=== PATIENT | male | born 1995 | race African-American/Black ===

== ENCOUNTER 2018-11-17 17:20 | Emergency (ER) | payer BC ==
--- NOTE | 2018-11-17 17:27 | EDPHY ---
H & P Time Seen by Provider: 11/17/18 17:24 HPI/ROS: CHIEF COMPLAINT: Left knee injury HISTORY OF PRESENT ILLNESS: [place] by EMS not as a trauma activation. He was doing his spin on his snowboard and fell down injuring his left knee. He can't extend the knee. He denies weakness or numbness in the foot, the severe pain, head injury or loss of consciousness or neck or back pain. REVIEW OF SYSTEMS: Cardiac: no chest pain or syncope Pulmonary: Not short of breath Abdomen: No abdominal pain Musculoskeletal: HPI, no neck pain Skin: No laceration Neuro: No weakness or numbness in extremities A comprehensive 10 point review of systems is otherwise negative aside from elements mentioned in the history of present illness. PAST MEDICAL HISTORY: Negative Social history: Here with family, plants return to [place] next week General Appearance: Alert and conversant, cooperative. Eyes: No scleral icterus. ENT, Mouth: Normal mucous membranes. Respiratory: Normal respiratory effort, breath sounds equal, lungs are clear to auscultation. Cardiovascular: Regular rate and rhythm. Gastrointestinal: Abdomen is soft and non tender. Neurological: Alert, face symmetric, normal motor and sensory in extremities. Specifically normal motor and sensory and dorsalis pedis pulse in the left foot. Skin: Warm and dry, no rashes. No lacerations or bruising. Musculoskeletal: The patient's left knee is stable to anterior and posterior drawer, to valgus and varus stress. He has normal compartments in the thigh and lower leg. He does have a high riding patella. Psychiatric: Not agitated. Emergency Department course/MDM: The x-ray personally reviewed and shown to the patient. Shows a high-riding patella consistent with an inferior patellar tendon rupture. I recommended he follow up with Orthopedics in [place] discussed having it fixed here or in [place]. The left knee immobilizer and crutches. Declined pain medication. Constitutional: Initial Vital Signs Temperature (C) 36.9 C 11/17/18 17:39 Heart Rate 64 11/17/18 17:39 Respiratory Rate 16 11/17/18 17:39 Blood Pressure 138/81 H 11/17/18 17:39 O2 Sat (%) 97 11/17/18 17:39 O2 Delivery Mode Room Air Allergies/Adverse Reactions: No Known Allergies Allergy (Unverified 11/17/18 18:22) Home Medications: Medication Instructions Recorded Hydrocodone/APAP 5/325 [[place] 1 tab PO Q4-6PRN PRN #11 tab 11/17/18 5/325] Medical Decision Making - Diagnostics Imaging Results: Imaging Impressions Knee X-Ray 11/17/18 17:27 Impression: 1. No fracture. 2. Hematoma inferior to the patella. Given high riding patella, inferior patellar tendon rupture is a concern. MRI is suggested for further evaluation. Imaging: I viewed and interpreted images myself Departure - Departure Disposition: Home, Routine, Self-Care Clinical Impression: Rupture of left patellar tendon Qualifiers: Encounter type: initial encounter Qualified Code(s): S86.812A - Strain of other muscle(s) and tendon(s) at lower leg level, left leg, initial encounter Condition: Good Instructions: Tendon Rupture (ED) Referrals: Tj Rowan MD [Medical Doctor] - As per Instructions (Call Dr. Olivares office tomorrow, you will need to schedule surgical repair of your patellar tendon. Knee immobilizer and crutches with limited weight-bearing until seen by Orthopedics.) Prescriptions: Hydrocodone/APAP 5/325 [[place] 5/325] 1 tab PO Q4-6PRN PRN #11 tab PRN Reason: For Pain
[2018-11-17 17:41] VITALS: BP 138/81
[2018-11-17] MEDS ORDERED: OXYCODONE/APAP 5/325MG PREPACK#4 BTL TAKEHOME ONE (18:30)
== END 2018-11-17 18:16 | disposition home or self-care (01) ==
DX: S86.812A Strain of other muscle(s) and tendon(s) at lower leg level, left leg, initial encounter (principal); V00.311A Fall from snowboard, initial encounter; Y93.23 Activity, snow (alpine) (downhill) skiing, snowboarding, sledding, tobogganing and snow tubing; Y92.828 Other wilderness area as the place of occurrence of the external cause
CPT/HCPCS: L1830